=== PATIENT | female | born 1985 | race Hispanic/Latino ===

== ENCOUNTER 2018-09-05 04:21 | Day surgery (SDC) | payer BC ==
[2018-09-05 05:19] VITALS: BP 108/55; TEMP 98.1; BMI 23.3
[2018-09-05 05:59] LABS: #Eosinphils 0.1 thou/uL (0.0-0.7); #Lymphocytes 1.9 thou/uL (1.20-3.40); #Monocytes 0.7 thou/uL (0.11-0.59); #Neutrophils 7.8 thou/uL (1.40-6.50); %Basophils 0.5 % (0.0-1.0); %Eosinophils 1.3 % (0.0-10.0); %Lymphocytes 17.7 % (21.0-51.0); %Monocytes 6.3 % (0.0-10.0); %Neutrophils 74.3 % (42.0-75.0); Hemoglobin 10.1 g/dL (12.0-16.0); Mean Corpuscular HGB CONC 32.3 g/dL (32.0-36.0); Mean Corpuscular Hemoglobin 29.8 pg (27.0-31.0); Mean Corpuscular Volume 92.1 fL (78.0-98.0); Mean Platelet Volume 7.8 fL (7.4-10.4); Platelet Count 217 thou/uL (130-400); RBC Distribution Width 11.8 % (11.5-14.5); Red Blood Cell (RBC) Count 3.38 mill/uL (4.20-5.40); White Blood Cell (WBC) Count 10.5 thou/uL (4.8-10.8)
[2018-09-05] MEDS ORDERED: Ondansetron ODT 8 MG TAB SL SCH (06:00)
[2018-09-05] MEDS ORDERED: Morphine 4 MG/ML VIAL IM SCH (06:00)
[2018-09-05 06:14] LABS: ALT (SGPT) 12 U/L (8-55); AST (SGOT) 15 U/L (5-34); Albumin 3.3 g/dL (3.5-5.0); Alkaline Phosphatase 40 U/L (40-150); Anion Gap 11 mmol/L (10-20); BUN (Urea Nitrogen) 10 mg/dL (7.0-18.7); Bilirubin, Total 0.3 mg/dL (0.2-1.2); Calc. Creatinine Clearance 161 mL/min (70-130); Calcium 8.4 mg/dL (7.8-10.44); Carbon Dioxide 26 mmol/L (22-29); Chloride 106 mmol/L (98-107); Estimated GFR-MDRD Greater than 90; Globulin 2.5 g/dL (2.4-3.5); Glucose 81 mg/dL (70-105); Protein, Total 5.8 g/dL (6.0-8.3); Sodium 139 mmol/L (136-145)
[2018-09-05 07:12] LABS: Bilirubin Negative (Negative); Blood, Urine Moderate (Negative); Clarity CLOUDY (Clear); Glucose, Urine (Dipstick) Negative (Negative); Leukocyte Moderate (Negative); Nitrite Positive (Negative); Protein, Urine (Dipstick) 100 mg/dL (Neg-Trace); Specific Gravity, Urine 1.022 (1.002-1.036); pH, Urine 6.5 (5.0-9.0)
[2018-09-05 07:15] LABS: Bacteria/HPF 4+ HPF (None Seen); Pathc Cast-AUWi Flag 1.36 (0-2.49); RBC/HPF 21-50 HPF (0-3); Squamous Epithelial 0-3 HPF (0-3)
[2018-09-05 07:32] LABS: Hyaline Casts/LPF 0-3 HYALINE CAST LPF (0-3 Hyaline); Other Casts/LPF None Seen LPF (0-3 Hyaline); Trichomonas/HPF None Seen HPF (None Seen); Yeast-All Forms None Seen HPF (None Seen)
[2018-09-05] MEDS ORDERED: cefTRIAXone\\ROCEPHIN 2 GM in Sodium Chloride 0.9% 100 ML IVPB ONE (07:39)
--- NOTE | 2018-09-05 07:42 | PDOC.EVN ---
Event Note - Event Note Event Note: ua back with strong evidence for uti. this with cva tenderness suggesting acending infection. afebrile. Will give rocephin 2gm iv and 1ltr LR. and reevaluate. Dr Peoples coming on duty and will give final disposition.
[2018-09-05] MEDS ORDERED: Lactated Ringer's 1,000 ML IV SCH (07:45)
--- NOTE | 2018-09-05 08:07 | ULT ---
COMPLETE ABDOMINAL ULTRASOUND: Date: 09/05/18 INDICATION: Right lower quadrant abdominal pain with loose stools and history of . FINDINGS: Visualized aorta and IVC are within normal limits. No focal hepatic lesion is evident. Spleen measures 12.1 cm in length. Gallbladder normal appearing. No sonographic Kingsley's sign reported. Common bile duct measures 3.1 mm. Pancreas is partially obscured. Right kidney measures 10.8 cm in length. Left kidney measures 11.6 cm. There is a 2.0 cm cyst involvi ng the mid to inferior pole of the left kidney. Incidental note is made of a live intrauterine gestation with cardiac activity at 153 beats/minute. The provided images of the right lower quadrant demonstrates bowel gas. No free fluid. The appendix i s not identified. IMPRESSION: 1. No acute sonographic abnormality within the abdomen. 2. Nonvisualization of appendix. 3. No free fluid demonstrated. 4. Left renal cyst. POS: BH
--- NOTE | 2018-09-05 09:16 | PRG ---
DATE OF SERVICE: 09/05/2018 PRIMARY OB: Dr. Mansoor Stephens. CHIEF COMPLAINT: Right lower quadrant pain. HISTORY OF PRESENT ILLNESS: The patient is a 33-year-old, G2, P1 female with an intrauterine at 21 weeks' gestation, who presented to Labor and Delivery with right lower quadrant pain that came on suddenly last night around 10 o'clock and this has not improved and so came to the ER for evaluation. The patient reports that it is quite severe and that she has some difficulty moving with it, activity can make it worse, but it is always present. The patient reports it as wrapping wing being in the right lower to right mid quadrant, feeling it in her back and then shooting down at times towards her legs. The patient denies fever, nausea, vomiting, diarrhea, constipation, hip problems, knee problems, or muscle weakness. Denies vaginal bleeding, leakage of fluid, urinary urgency or frequency. Denies illness, fever, falls, headache, chest pain, or shortness of breath. The patient denies any activities out of ordinary and reports that she had gone for a walk prior to the onset of her symptoms. The patient describes the pain as being sharp and stabbing. PAST MEDICAL HISTORY: Negative. PAST SURGICAL HISTORY: Negative. ALLERGIES: NO KNOWN DRUG ALLERGIES. MEDICATIONS: vitamins. SOCIAL HISTORY: Denies drug, alcohol, or tobacco use. OB LABS: Unavailable at time of dictation. She is A negative and reports having had RhoGAM earlier in the . REVIEW OF SYSTEMS: Per HPI. PHYSICAL EXAMINATION: VITAL SIGNS: Blood pressure 108/55, heart rate of 82, respiratory rate of 20, and temperature 98.1. GENERAL: The patient does appear quite uncomfortable lying down. She is alert and oriented, otherwise cooperative and pleasant to interact with. HEAD: Normocephalic, atraumatic. LUNGS: Clear to auscultation bilaterally. HEART: Regular rate and rhythm. ABDOMEN: Quite tender on the right side with right CVA tenderness. She has tenderness on the right side with palpation of the uterus and deviation of the uterus. This is absent with palpation on the patient's left side and upper abdominal regions. Pain does not seem to refer any direction with physical exam. This does not appear to be muscular along her back. No SI joint pain and no suprapubic tenderness. DIAGNOSTIC DATA: Fetus was Doppler'd and found to be in the 140s. Ultrasound was performed. Preliminary read shows normal kidneys, no hydroureter. Appendix cannot be seen. CBC shows a white count of 10.5, hemoglobin is 10.1, hematocrit 31.1, platelets of 217,000 and neutrophil percentage 74. Sodium 139, potassium 4.0, creatinine 0.54, calcium 8.4, AST 15, and ALT 12. Urinalysis is pending. ASSESSMENT/PLAN: The patient is a 33-year-old female with sudden onset right lower quadrant pain and appears quite acute in nature. We have evaluated her for concerns of kidney stones. We have urine pending, but there is no evidence of hydroureter or hydronephrosis on that right side, which is not suggestive of anything obstructing the urine. We are awaiting on to see if there is any evidence of blood. She has no evidence of any large inflammatory process or infectious process with normal white count and no left shift. That with no active constellation of symptoms suggesting appendicitis, makes that less likely pending a normal urinalysis. The other most likely reason for her pain though seems more acute than expected is ligamentous pain or round ligament pain or other sort of musculoskeletal pain. The patient has been given the option of serial exams here and/or observation or to go home with pain medications on board as she has been given 6 mg of morphine IM and can continue using Tylenol at home with instructions to return should her symptoms worse or began having associated symptoms suggestive of infection such as fever, nausea, vomiting, or diarrhea. The patient has options to go home and rest and see what happens as they progress. I will be keeping Dr. Stephens touched up with this patient as the patient may be coming in this evening or early this afternoon for repeat exam in the office. The fetus is still reassuring by Doppler. Job ID: [id number]
--- NOTE | 2018-09-05 09:38 | PDOC.EVN ---
Event Note - Event Note Event Note: Rocephin given. Remains AF. WBC was unremarkable. Will Dc home on Keflex 500 QID x 7 days with short interval f/u at [facility]. UC is pending. Precautions reviewed with pt. and SO. Dr. Stephens aware.
== END 2018-09-05 10:26 | disposition home health service (06) ==
LOC: L&D/OP 04:21
PROVIDERS: ATTEND Obstetrics & Gynecology
DX: O99.89 Other specified diseases and conditions complicating pregnancy, childbirth and the puerperium (principal); R10.31 Right lower quadrant pain; O23.42 Unspecified infection of urinary tract in pregnancy, second trimester; B96.20 Unspecified Escherichia coli [E. coli] as the cause of diseases classified elsewhere; Z3A.21 21 weeks gestation of pregnancy; Z79.899 Other long term (current) drug therapy
CPT/HCPCS: 36415; 76700; 80053; 81001; 85025; 87077; 87086; 87186; 96361; 96365; 96372; 99283; J0696; J2270; J7050

== ENCOUNTER 2019-01-09 23:31 | Inpatient (IN) | payer BC ==
[2019-01-10] MEDS: Lactated Ringer's 1,000 ML IV SCH ×2 (00:10→01:45)
[2019-01-10] MEDS ORDERED: Lidocaine 1% (PF) 30 ML VIAL SC PRN (00:15)
[2019-01-10] MEDS ORDERED: Butorphanol Tartrate 1 MG/ML VIAL SLOW IVP PRN (00:15)
[2019-01-10] MEDS ORDERED: Lactated Ringer's 1,000 ML IV SCH (00:15)
[2019-01-10] MEDS ORDERED: Ibuprofen 800 MG TAB PO PRN (00:15)
[2019-01-10] MEDS ORDERED: Promethazine HCl 25 MG/ML VIAL IM PRN ×2 (00:15→01:37)
[2019-01-10] MEDS ORDERED: HYDROcodone/Acetaminophen 5/325 mg Tablet PO PRN (00:15)
[2019-01-10] MEDS ORDERED: hydrALAZINE 20 MG/ML VIAL SLOW IVP PRN ×2 (00:15→11:27)
[2019-01-10] MEDS ORDERED: Ondansetron PF 4 MG/2 ML Vial IVP PRN ×3 (00:15→11:27)
[2019-01-10 00:30] LABS: Hemoglobin 10.9 g/dL (12.0-16.0); Mean Corpuscular HGB CONC 32.6 g/dL (32.0-36.0); Mean Corpuscular Hemoglobin 27.9 pg (27.0-31.0); Mean Corpuscular Volume 85.5 fL (78.0-98.0); Mean Platelet Volume 8.7 fL (7.4-10.4); Platelet Count 230 thou/uL (130-400); RBC Distribution Width 12.7 % (11.5-14.5); White Blood Cell (WBC) Count 8.1 thou/uL (4.8-10.8)
[2019-01-10] MEDS ORDERED: Fentanyl 4 mcg/Bup 0.1% Cadd 100 ML ONE (00:36)
[2019-01-10 01:09] LABS: Syphilis Antibody Nonreactive (Nonreactive); Syphilis Antibody Index 0.03 S/CO (<1.00 Non-Reactive)
[2019-01-10 01:10] LABS: HBSAg Index 0.31 S/CO (0-0.99); Hep B Surf Ag Non-Reactive S/CO (NonReactive)
[2019-01-10] MEDS ORDERED: Naloxone HCl 0.4 mg/ml Vial IVP PRN ×2 (01:37)
[2019-01-10] MEDS ORDERED: diphenhydrAMINE 50 MG/ML VIAL IVP PRN (01:37)
[2019-01-10] MEDS ORDERED: ePHEDrine/0.9% NaCl/PF SYRINGE 50 mg/10 ml SLOW IVP PRN (01:37)
[2019-01-10] MEDS ORDERED: Acetaminophen 325 MG TAB PO PRN (01:37)
[2019-01-10] MEDS ORDERED: Lactated Ringer's 500 ML IV PRN (01:37)
[2019-01-10] MEDS ORDERED: Communication Order-Pharmacy FS SCH (01:45)
[2019-01-10] MEDS ORDERED: Fentanyl 4 mcg/Bupivacaine 0.1% Cassette 100 ML EPIDURAL SCH (01:45)
[2019-01-10 02:35] VITALS: BMI 25.2
[2019-01-10] MEDS: NS / Oxytocin 40 units/1000ml 1,000 ML IV PRN ×2 (04:50→07:13)
--- NOTE | 2019-01-10 06:08 | OP ---
DATE OF PROCEDURE: 01/10/2019 The patient delivered a female at 0446 hours on 01/10/2019 by term spontaneous vaginal delivery at 39 weeks and 4 days gestation. Apgars are 9 and 9. Weight is unavailable at time of dictation. Placenta delivered spontaneously followed by Pitocin infusion. There was a second-degree perineal laceration repaired for hemostasis in the usual fashion. Quantitative blood loss was [address] Alcides Merlos is the delivering physician. Counts were correct. Condition, the patient is stable in the immediate . Job ID: [id number]
[2019-01-10] MEDS ORDERED: Bupivacaine/Epinephrine 0.25% 30 ML VIAL ONE (11:11)
[2019-01-10] MEDS ORDERED: NS / Oxytocin 40 units/1000ml 1,000 ML IV SCH (11:27)
[2019-01-10] MEDS ORDERED: Benzocaine-Menthol 82.5 ML CAN TOP PRN (11:27)
[2019-01-10] MEDS ORDERED: Bisacodyl 10 MG SUPP PR PRN (11:27)
[2019-01-10] MEDS ORDERED: Lanolin Ointment 7 GM TUBE TOP PRN (11:27)
[2019-01-10] MEDS ORDERED: Adacel (T-DAP) 0.5 ML SYRINGE IM ONE (11:27)
[2019-01-10] MEDS ORDERED: Milk Of Magnesia 30 ML UDCUP PO PRN (11:27)
[2019-01-10] MEDS: Ibuprofen 800 MG TAB PO SCH ×2 (14:29→21:58)
[2019-01-10] MEDS ORDERED: Sodium Chloride 0.9% 10 ML ONE (16:17)
[2019-01-10] MEDS: Ferrous Sulfate 325 MG TAB PO SCH (16:34)
[2019-01-10] MEDS: Docusate Calcium (SURFAK) 240 MG CAP PO SCH (21:59)
[2019-01-11] MEDS: Ibuprofen 800 MG TAB PO SCH ×2 (05:33→16:22)
[2019-01-11 06:46] LABS: #Eosinphils 0.2 thou/uL (0.0-0.7); #Lymphocytes 2.2 thou/uL (1.20-3.40); #Monocytes 0.4 thou/uL (0.11-0.59); #Neutrophils 6.3 thou/uL (1.40-6.50); %Basophils 0.2 % (0.0-1.0); %Eosinophils 1.7 % (0.0-10.0); %Lymphocytes 24.3 % (21.0-51.0); %Monocytes 4.8 % (0.0-10.0); %Neutrophils 68.9 % (42.0-75.0); Hemoglobin 9.8 g/dL (12.0-16.0); Mean Corpuscular HGB CONC 31.9 g/dL (32.0-36.0); Mean Corpuscular Hemoglobin 27.3 pg (27.0-31.0); Mean Corpuscular Volume 85.4 fL (78.0-98.0); Mean Platelet Volume 8.3 fL (7.4-10.4); Platelet Count 182 thou/uL (130-400); Red Blood Cell (RBC) Count 3.59 mill/uL (4.20-5.40); White Blood Cell (WBC) Count 9.2 thou/uL (4.8-10.8)
[2019-01-11] MEDS: Docusate Calcium (SURFAK) 240 MG CAP PO SCH (08:51)
--- NOTE | 2019-01-11 08:52 | PDOC.PP ---
Post Progress Note Post Day #: 1 Subjective: Doing well, no concerns, min lochia, min discomfort, latching well PO intake tolerated: yes Flatus: yes Ambulation: yes Vital Signs (12 hours) Temp Pulse Resp BP Pulse Ox 01/11/19 08:23 97.8 F 74 20 110/68 98 01/11/19 03:52 98.0 F 75 18 107/65 99 01/11/19 00:20 98.7 F 75 18 112/69 98 Weight Weight 161 lb - Physical Examination General: NAD Respiratory: non-labored breathing Fundus firm & at: firm below umb Skin: no rash Psychiatric: A&Ox3, normal affect Result Diagrams: 01/11/19 06:35 Additional Labs: Post Labs Blood Type A NEGATIVE 01/10/19 00:20 Hep Bs Antigen Non-Reactive S/CO (NonReactive) 01/10/19 00:20 (1) Vaginal delivery Code(s): O80 - ENCOUNTER FOR FULL-TERM UNCOMPLICATED DELIVERY Status: Acute - Assessment/Plan Doing well, plan on DC today.
[2019-01-11] MEDS ORDERED: Prenatal Vitamin 1 TAB PO SCH (09:00)
[2019-01-11] MEDS: Ferrous Sulfate 325 MG TAB PO SCH (09:44)
[2019-01-11 11:35] VITALS: BP 112/76; TEMP 98.5
== END 2019-01-11 16:50 | disposition home or self-care (01) | DRG 807 ==
LOC: L&D/OP 23:31 → L&D 01-10 00:17 → 3SE 01-10 09:01
PROVIDERS: ADMIT Obstetrics & Gynecology; ATTEND Obstetrics & Gynecology
PROC: 10E0XZZ Delivery of Products of Conception, External Approach (ICD-10-PCS; principal; 2019-01-10)
PROC: 0KQM0ZZ Repair Perineum Muscle, Open Approach (ICD-10-PCS; 2019-01-10)
DX: O70.1 Second degree perineal laceration during delivery (principal); Z37.0 Single live birth; Z3A.39 39 weeks gestation of pregnancy
CPT/HCPCS: 36415; 51702; 85025; 85027; 85461; 86780; 86850; 86870; 86900; 86901; 87340; 90384; 96372; 99285

== ENCOUNTER 2019-03-13 09:38 | Outpatient (CLI) | payer BC ==
--- NOTE | 2019-03-13 11:22 | ULT ---
ABDOMINAL ULTRASOUND: 03/13/2019 HISTORY: Pain. COMPARISON: 09/05/2018 TECHNIQUE: Multiplanar beard-scale sonographic imaging of the abdomen obtained. FINDINGS: The imaged pancreas appears unremarkable. The imaged IVC and aorta are within normal limits. The hepatic parenchyma is grossly unremarkable with no focal liver lesion or intrahepatic biliary dil atation noted. The common bile duct measures 3 mm, within normal limits. No gallbladder wall thickening or pericholecystic fluid. No gallstones are noted. The right kidney measures 10.9 cm in craniocaudal dimension and demonstrates no stone, hydronephrosis or mass lesion. The spleen measures 10.9 cm in greatest dimension, normal. The left kidney measures 11.3 cm in craniocaudal dimension and demonstrates no hydronephrosis. There is a round hypoechoic lesion in the lower pole of the left kidney, measuring 1.9 cm, as seen on the prior examination, suggesting a renal cyst. Immediately adjacent to this and/or within the infer ior dependent portion of this lesion, there is a 1.2 cm linear area of increased echogenicity with shadowing, suggesting calcification. This could be best assessed via CT. This may represent milk of calcium. IMPRESSION: No acute findings. Findings suggesting a mildly complex cyst within the lower pole of the left kidne y, which could be definitively characterized with CT. Alternatively, a follow-up renal ultrasound in six months is advised to document stability. Transcribed Date/Time: 03/13/2019 12:24 PM
== END 2019-03-13 09:39 | disposition home or self-care (01) ==
LOC: ULT 09:38
PROVIDERS: ATTEND Family Medicine
DX: R10.84 Generalized abdominal pain (principal)
CPT/HCPCS: 76700

== ENCOUNTER 2024-05-08 07:34 | Outpatient (CLI) | payer OTHER | END 2024-05-08 07:35 | disposition home or self-care (01) | LOC: BICULT 07:34 | PROVIDERS: ATTEND Internal Medicine | DX: K21.9 Gastro-esophageal reflux disease without esophagitis (principal); R74.8 Abnormal levels of other serum enzymes | CPT/HCPCS: 76705 ==